=== PATIENT | female | born 2000 | race Caucasian/White ===

== ENCOUNTER → 2019-06-03 16:14 | Outpatient (CLI) | payer OTHER, SELFPAY ==
--- NOTE | 2019-06-03 16:16 | DI.US.S_ITS ---
PROCEDURE: US PELVIC COMPLETE INDICATIONS: LT PELVIC PAIN TECHNIQUE: Real-time scanning was performed of the pelvic organs, with image documentation. Additional endovaginal scanning was necessary due to incomplete visualization of the adnexal and endometrial structures by transabdominal scanning. COMPARISON: None. FINDINGS: Transabdominal scanning: Limited scanning through the kidneys shows no hydronephrosis. No pathologic free abdominal or pelvic fluid. Endovaginal scanning: Uterus: Uterus is normal in size at 8.4 x 2.9 x 4.4 cm. The endometrium measures 2.9 mm in combined thickness. Ovaries: Upper normal in size measuring 2.8 x 1.5 x 1.0 cm on the right and 4.3 x 3.4 x 4.3 cm on the left. Complex, predominantly solid-appearing mass involves the left ovary measuring 4.0 x 2.7 x 3.9 cm. There is mild posterior acoustic enhancement. Doppler assessment of the mass demonstrates no internal flow. IMPRESSION: Complex, predominantly solid-appearing left ovarian mass which may be related to a hemorrhagic ovarian cyst; although ovarian dermoid tumor cannot be excluded based on the appearance. Recommend short term follow pelvic ultrasound in 6-12 weeks to assess for temporal resolution. Dictated by: Fernando NULL Interpreted: Abigail Garcia MD on 06/03/2019 at 17:21 Approved by: Abigail Garcia MD, PhD on 06/03/2019 at 18:10
== END ==
PROVIDERS: Visit Provider Physician Assistant
DX: R10.30 Lower abdominal pain, unspecified (principal)
CPT/HCPCS: 76830; 76856

== ENCOUNTER → 2020-12-24 19:03 | Outpatient (CLI) | payer OTHER, SELFPAY ==
--- NOTE | 2020-12-24 19:07 | DI.MRI.S_ITS ---
PROCEDURE: MR KNEE LT WO CON INDICATIONS: UNSPECIFIED INTERNAL DERANGEMENT OF LEFT KNEE TECHNIQUE: Noncontrast sagittal PD fast spin echo and T2 fast spin echo with fat saturation, sagittal 3-D FLASH with fat saturation; coronal T1 spin echo and PD fast spin echo with fat saturation, and axial PD fast spin echo with fat saturation through the knee. COMPARISON: None. FINDINGS: Image quality: There is mild inhomogeneous fat saturation. Menisci: The medial and lateral menisci demonstrate normal morphology and internal signal. The meniscal root ligaments appear intact. Cruciate ligaments: The anterior and posterior cruciate ligaments appear intact. Medial structures: There is mild partial tearing involving the medial collateral ligament anteriorly with associated periligamentous edema. Findings are compatible with a grade 2 sprain. The semimembranosus tendon insertions and meniscocapsular junction appear intact. Visualized portions of the pes anserinus tendons appear intact without associated bursal fluid collections. Lateral structures: The lateral collateral ligament, long and short heads of the biceps femoris tendon appear intact. The popliteus tendon appears intact. Iliotibial band appears normal. Anterior structures: The quadriceps and patellar tendons appear intact. There is a slight lateral tilt of the patella. No femoral trochlear dysplasia or ventral trochlear prominence. No edema in the infrapatellar fat pad. Bones and cartilage: No bone marrow contusions or fractures. Mild indistinct bone marrow edema within the medial aspect of the medial femoral condyle along the origin of the MCL likely represents stress reaction or reactive changes. The cartilage of the medial and lateral femorotibial compartments, as well as the patellofemoral compartment, appears preserved in overall thickness. There is mild heterogeneous cartilage signal in the lateral patellofemoral compartment. Mild chondral heterogeneity is also demonstrated in the medial and lateral compartments. Joint space: There is physiologic knee joint fluid. There is trace fluid in the expected region of a Rooney's cyst. Normal appearing synovial plicae are incidentally noted. IMPRESSION: 1. Grade 2 sprain of the medial collateral ligament anteriorly. 2. Mild associated indistinct bone marrow edema along the origin of the MCL likely represents associated stress reaction or reactive changes. Dictated by: Nikolai Le M.D. on 12/27/2020 at 9:35 Approved by: Nikolai Le M.D. on 12/27/2020 at 9:45
== END ==
PROVIDERS: Referring Provider Physician Assistant; Visit Provider Physician Assistant
DX: M23.92 Unspecified internal derangement of left knee (principal); S83.412A Sprain of medial collateral ligament of left knee, initial encounter
CPT/HCPCS: 73721

== ENCOUNTER → 2021-01-07 14:27 | Outpatient (CLI) | payer OTHER, SELFPAY | PROVIDERS: Visit Provider Specialist | DX: Z11.3 Encounter for screening for infections with a predominantly sexual mode of transmission (principal) | CPT/HCPCS: 87491; 87591 ==